=== PATIENT | female | born 2000 | race Two or more races ===

== ENCOUNTER 2021-06-13 10:15 | Day surgery (SDC) | payer OTHER ==
[2021-06-13] MEDS ORDERED: IBU800 MG PO (14:28)
[2021-06-13] MEDS ORDERED: PERCOCET 5-3251 EACH PO (14:28)
[2021-06-13] MEDS ORDERED: CIPRO500 MG PO (14:28)
== END 2021-06-13 17:40 | disposition home or self-care (01) ==
LOC: CIR.AMB 10:15
PROVIDERS: ATTEND Obstetrics & Gynecology Gynecology
DX: N80.0 Endometriosis of uterus (principal); Z86.16 Personal history of COVID-19; M41.86 Other forms of scoliosis, lumbar region